=== PATIENT | female | born 1955 | race American Indian/Alaskan Native ===

== ENCOUNTER 2018-07-21 15:13 | Inpatient (IN) | payer BC ==
[2018-07-21 17:32] VITALS: BMI 39.9
[2018-07-21] MEDS: oxyCODONE 10 mg Immediate Release Tab PO PRN (19:28)
--- NOTE | 2018-07-21 19:41 | CP.PCM.HP ---
History of Present Illness - History of Present Illness History of Present Illness: 63 yo female with history of arthritis had left TKR on 07/19/2018 at [facility] after failing conservative management for arthritis of the knee. She was transferred to [facility] and admitted to TCU for rehabilitation. Present on Admission - Present on Admission Any Indicators Present on Admission: No History of DVT/PE: No History of Uncontrolled Diabetes: No Urinary Catheter: No Decubitus Ulcer Present: No Review of Systems - Review of Systems All systems: reviewed and no additional remarkable complaints except (aside from those mentioned above, 12 point system review were negative by me) Past Patient History - Past Medical History & Family History Past Medical History?: Yes - Past Social History Smoking Status: Never Smoked Chewing Tobacco Use: No Cigar Use: No Alcohol: None Drugs: Denies - CARDIAC Hx Cardiac Disorders: No - PULMONARY Hx Respiratory Disorders: No - NEUROLOGICAL Hx Neurological Disorder: Yes Hx Migraine: Yes - HEENT Hx HEENT Problems: Yes Other/Comment: WEARS GLASSES - RENAL Hx Chronic Kidney Disease: No - ENDOCRINE/METABOLIC Hx Endocrine Disorders: Yes Hx Hypothyroidism: Yes - HEMATOLOGICAL/ONCOLOGICAL Hx Blood Disorders: Yes Hx Cancer: Yes (Colon) - INTEGUMENTARY Hx Dermatological Problems: No - MUSCULOSKELETAL/RHEUMATOLOGICAL Hx Musculoskeletal Disorders: Yes (KNEE PAIN) Hx Arthritis: Yes Hx Back Pain: Yes (CERVICAL/LUMBAR) Hx Falls: No Hx Herniated Disk: Yes Hx Spinal Stenosis: Yes - GASTROINTESTINAL Hx Gastrointestinal Disorders: Yes Hx Bowel Surgery: Yes (COLON RESECTION) Hx Ulcer: Yes Other/Comment: COLON CANCER S/P SURGERY - GENITOURINARY/GYNECOLOGICAL Hx Genitourinary Disorders: Yes Hx Postmenopausal Bleeding: Yes - PSYCHIATRIC Hx Psychophysiologic Disorder: No Hx Substance Use: No - SURGICAL HISTORY Hx Surgeries: Yes Hx Appendectomy: Yes Hx Breast Biopsy: Yes (EXC.CYST RT BREAST) Hx Section: Yes (X1) Hx Dilation and Curettage: Yes Hx Joint Replacement: Yes (left total knee 07/19/18) Other/Comment: 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 - ANESTHESIA Hx Anesthesia: Yes Hx Anesthesia Reactions: Yes (NAUSEA) Hx Malignant Hyperthermia: No Meds Allergies/Adverse Reactions: Allergies Allergy/AdvReac Type Severity Reaction Status Date / Time iodine Allergy HEADACHE Verified 07/21/18 17:51 Physical Exam - Constitutional Appears: No Acute Distress - Head Exam Head Exam: ATRAUMATIC - Eye Exam Eye Exam: absent: Scleral icterus - ENT Exam ENT Exam: Mucous Membranes Moist - Neck Exam Neck exam: Negative for: Meningismus - Respiratory Exam Respiratory Exam: absent: Rales, Rhonchi, Wheezes, Respiratory Distress - Cardiovascular Exam Cardiovascular Exam: REGULAR RHYTHM, +S1, +S2 - GI/Abdominal Exam GI & Abdominal Exam: Soft. absent: Tenderness - Rectal Exam Rectal Exam: Deferred - Extremities Exam Extremities exam: Negative for: full ROM (limited ROM on left knee) - Back Exam Back exam: NORMAL INSPECTION - Neurological Exam Neurological exam: Alert, Oriented x3 - Psychiatric Exam Psychiatric exam: Normal Affect - Skin Skin Exam: Dry, Intact Results - Vital Signs Recent Vital Signs: Last Vital Signs Temp 98.9 F 07/21/18 17:32 Pulse 99 H 07/21/18 17:52 Resp 20 07/21/18 17:52 BP 135/83 07/21/18 17:32 Pulse Ox 100 07/21/18 17:32 Assessment & Plan - Assessment and Plan (Free Text) Assessment: 63 yo female with history of arthritis had left TKR on 07/19/2018 at [facility] after failing conservative management for arthritis of the knee. She was transferred to [facility] and admitted to TCU for rehabilitation. 1. Post Left TKR physiatry consult refer to PT/OT for evaluation and management pain control 2. DVT Prophylaxis Lovenox 40mg SC daily
[2018-07-21] MEDS ORDERED: Magnesium Hydroxide Susp 30 ml UD PO PRN (19:49)
[2018-07-22] MEDS: oxyCODONE 10 mg Immediate Release Tab PO PRN ×4 (06:26→20:36)
[2018-07-22] MEDS: Levothyroxine 125 MCG TAB PO SCH (06:27)
[2018-07-22 07:20] LABS: INR 1.2; PROTHROMBIN TIME 13.1 Seconds (9.8-13.1)
[2018-07-22 07:49] LABS: BLOOD UREA NITROGEN 14 mg/dl (7-17); CALCIUM 8.9 mg/dL (8.4-10.2); GFR NON-AFRICAN AMERICAN > 60; HEMOGLOBIN 10.7 g/dL (12.0-16.0); MEAN CELL VOLUME 89.9 fl (81.0-99.0); MEAN CORPUSCULAR HEMOGLOBIN 28.6 pg (27.0-31.0); MEAN CORPUSCULAR HGB CONC 31.8 g/dL (33.0-37.0); RBC 3.76 Mil/uL (3.80-5.20); RED CELL DISTRIBUTION WIDTH 16.2 % (11.5-14.5); WHITE BLOOD COUNT 6.1 K/uL (4.8-10.8)
[2018-07-22] MEDS ORDERED: LEVOTHYROXINE SODIUM 125 MCG PO SCH (09:00)
[2018-07-22] MEDS: Pantoprazole 40 mg EC Tab PO SCH (09:42)
[2018-07-22] MEDS: Enoxaparin 40 mg Syringe SC SCH (10:26)
[2018-07-23] MEDS: oxyCODONE 10 mg Immediate Release Tab PO PRN ×3 (04:20→20:43)
[2018-07-23] MEDS: Levothyroxine 125 MCG TAB PO SCH (06:48)
[2018-07-23] MEDS: Enoxaparin 40 mg Syringe SC SCH (08:32)
[2018-07-23] MEDS: Pantoprazole 40 mg EC Tab PO SCH (08:33)
[2018-07-24] MEDS: Levothyroxine 125 MCG TAB PO SCH (07:39)
[2018-07-24] MEDS: oxyCODONE 10 mg Immediate Release Tab PO PRN ×3 (08:44→20:43)
[2018-07-24] MEDS: Pantoprazole 40 mg EC Tab PO SCH (08:45)
[2018-07-24] MEDS: Enoxaparin 40 mg Syringe SC SCH (08:45)
--- NOTE | 2018-07-24 18:00 | CP.PCM.CON ---
History of Present Illness - History of Present Illness History of Present Illness: Dr Mullins PMR consultation on Marlene Nevarez, born 1955 who has been admitted to [facility] following a left TKR. Post op doing well. Had failed conservative care. Has a history of lumbar pain in the past with surgery. No right knee pain. Review of Systems - Constitutional Constitutional: absent: Chills - EENT Eyes: absent: Change in Vision Ears: absent: Ear Discharge, Ear Pain Nose/Mouth/Throat: absent: Nasal Congestion - Cardiovascular Cardiovascular: absent: Chest Pain - Respiratory Respiratory: absent: Dyspnea, Hemoptysis - Gastrointestinal Gastrointestinal: absent: Constipation - Musculoskeletal Musculoskeletal: Back Pain - Integumentary Integumentary: absent: Bleeding Lesions - Neurological Neurological: absent: Abnormal Movements, Burning Sensations, Disequilibrium, Dizziness, Radicular Pain Past Patient History - Past Medical History & Family History Past Medical History?: Yes - Past Social History Smoking Status: Never Smoked Chewing Tobacco Use: No Cigar Use: No Alcohol: None Drugs: Denies Home Situation {Lives}: With Family (11 outdoor steps and 14 indoor steps) - CARDIAC Hx Cardiac Disorders: No - PULMONARY Hx Respiratory Disorders: No - NEUROLOGICAL Hx Neurological Disorder: Yes Hx Migraine: Yes - HEENT Hx HEENT Problems: Yes Other/Comment: WEARS GLASSES - RENAL Hx Chronic Kidney Disease: No - ENDOCRINE/METABOLIC Hx Endocrine Disorders: Yes Hx Hypothyroidism: Yes - HEMATOLOGICAL/ONCOLOGICAL Hx Blood Disorders: Yes Hx Cancer: Yes (Colon) - INTEGUMENTARY Hx Dermatological Problems: No - MUSCULOSKELETAL/RHEUMATOLOGICAL Hx Musculoskeletal Disorders: Yes (KNEE PAIN) Hx Arthritis: Yes Hx Back Pain: Yes (CERVICAL/LUMBAR) Hx Falls: No Hx Herniated Disk: Yes Hx Spinal Stenosis: Yes - GASTROINTESTINAL Hx Gastrointestinal Disorders: Yes Hx Bowel Surgery: Yes (COLON RESECTION) Hx Ulcer: Yes Other/Comment: COLON CANCER S/P SURGERY - GENITOURINARY/GYNECOLOGICAL Hx Genitourinary Disorders: Yes Hx Postmenopausal Bleeding: Yes - PSYCHIATRIC Hx Psychophysiologic Disorder: No Hx Substance Use: No - SURGICAL HISTORY Hx Surgeries: Yes Hx Appendectomy: Yes Hx Breast Biopsy: Yes (EXC.CYST RT BREAST) Hx Section: Yes (X1) Hx Dilation and Curettage: Yes Hx Joint Replacement: Yes (left total knee 07/19/18) Other/Comment: 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 - ANESTHESIA Hx Anesthesia: Yes Hx Anesthesia Reactions: Yes (NAUSEA) Hx Malignant Hyperthermia: No Meds Allergies/Adverse Reactions: Allergies Allergy/AdvReac Type Severity Reaction Status Date / Time Iodinated Contrast- Oral and Allergy Mild RASH Verified 07/22/18 09:19 IV Dye - Medications Medications: Current Medications Celecoxib (Celebrex) 200 mg PO DAILY [facility] Last Admin: 07/24/18 08:45 Dose: 200 mg Cyclobenzaprine HCl (Flexeril) 10 mg PO BID PRN PRN Reason: Muscle spasm Last Admin: 07/23/18 22:06 Dose: 10 mg Docusate Sodium (Colace) 100 mg PO BID [facility] Last Admin: 07/24/18 17:01 Dose: Not Given Enoxaparin Sodium (Lovenox) 40 mg SC DAILY [facility]; Protocol Last Admin: 07/24/18 08:45 Dose: 40 mg Gabapentin (Neurontin) 300 mg PO Q12 [facility] Last Admin: 07/24/18 08:45 Dose: 300 mg Levothyroxine Sodium (Synthroid) 125 mcg PO ACB@0630 [facility] Last Admin: 07/24/18 07:39 Dose: 125 mcg Magnesium Hydroxide (Milk Of Magnesia) 30 ml PO DAILY PRN PRN Reason: Constipation Oxycodone HCl (Oxycodone Immediate Release Tab) 10 mg PO Q4 PRN PRN Reason: Pain, severe (8-10) Last Admin: 07/24/18 14:21 Dose: 10 mg Pantoprazole Sodium (Protonix Ec Tab) 40 mg PO DAILY [facility] Last Admin: 07/24/18 08:45 Dose: 40 mg Physical Exam - Constitutional Appears: Well, Non-toxic, No Acute Distress - Head Exam Head Exam: ATRAUMATIC, NORMAL INSPECTION, NORMOCEPHALIC - Eye Exam Eye Exam: EOMI - ENT Exam ENT Exam: Mucous Membranes Moist - Respiratory Exam Respiratory Exam: NORMAL BREATHING PATTERN - Cardiovascular Exam Cardiovascular Exam: REGULAR RHYTHM - GI/Abdominal Exam GI & Abdominal Exam: absent: Distended, Firm - Extremities Exam Extremities exam: Negative for: calf tenderness - Neurological Exam Neurological exam: Alert, CN II-XII Intact, Oriented x3 - Psychiatric Exam Psychiatric exam: Normal Affect, Normal Mood - Skin Skin Exam: Warm Results - Vital Signs Recent Vital Signs: Last Vital Signs Temp 97.8 F 07/24/18 16:42 Pulse 96 H 07/24/18 16:42 Resp 20 07/24/18 16:42 BP 118/76 07/24/18 16:42 Pulse Ox 99 07/24/18 16:42 - Labs Result Diagrams: 07/22/18 05:30 07/22/18 05:30 Assessment & Plan - Assessment and Plan (Free Text) Assessment: 63 year old female s/p left TKR POD #6 PT/OT to continue to help increase functional independence Team conference for d/c planning Pain: controlled Vascular: no evidence of DVT GI: No evidence of constipation or diarrhea Patient continues to be an excellent acute rehabilitation candidate and will have continued focused pain management, wound care, PT, OT and recreational therapy to help facilitate a safe and appropriate d/c plan
[2018-07-25] MEDS: oxyCODONE 10 mg Immediate Release Tab PO PRN ×4 (03:54→21:26)
[2018-07-25] MEDS: Levothyroxine 125 MCG TAB PO SCH (06:15)
[2018-07-25] MEDS: Enoxaparin 40 mg Syringe SC SCH (08:19)
[2018-07-25] MEDS: Pantoprazole 40 mg EC Tab PO SCH (08:20)
--- NOTE | 2018-07-25 12:14 | CP.PCM.PN ---
Subjective - Date & Time of Evaluation Date of Evaluation: 07/25/18 Time of Evaluation: 11:00 - Subjective Subjective: Patient seen and examined. Claimed that pain on her operated left knee does not bother her but continued to have pain medication for her pre-existing low back pain. Objective - Vital Signs/Intake and Output Vital Signs (last 24 hours): Temp Pulse Resp BP Pulse Ox 98.3 F 85 20 115/76 100 07/25/18 08:19 07/25/18 08:19 07/25/18 08:19 07/25/18 08:19 07/25/18 08:19 - Medications Medications: Current Medications Celecoxib (Celebrex) 200 mg PO DAILY [facility] Last Admin: 07/25/18 08:19 Dose: 200 mg Cyclobenzaprine HCl (Flexeril) 10 mg PO BID PRN PRN Reason: Muscle spasm Last Admin: 07/25/18 03:54 Dose: 10 mg Docusate Sodium (Colace) 100 mg PO BID [facility] Last Admin: 07/25/18 08:20 Dose: 100 mg Enoxaparin Sodium (Lovenox) 40 mg SC DAILY [facility]; Protocol Last Admin: 07/25/18 08:19 Dose: 40 mg Gabapentin (Neurontin) 300 mg PO Q12 [facility] Last Admin: 07/25/18 08:20 Dose: 300 mg Levothyroxine Sodium (Synthroid) 125 mcg PO ACB@0630 [facility] Last Admin: 07/25/18 06:15 Dose: 125 mcg Magnesium Hydroxide (Milk Of Magnesia) 30 ml PO DAILY PRN PRN Reason: Constipation Oxycodone HCl (Oxycodone Immediate Release Tab) 10 mg PO Q4 PRN PRN Reason: Pain, severe (8-10) Last Admin: 07/25/18 08:18 Dose: 10 mg Pantoprazole Sodium (Protonix Ec Tab) 40 mg PO DAILY [facility] Last Admin: 07/25/18 08:20 Dose: 40 mg - Labs Labs: 07/22/18 05:30 07/22/18 05:30 PT 13.1 Seconds (9.8-13.1) 07/22/18 05:30 INR 1.2 07/22/18 05:30 - Constitutional Appears: No Acute Distress - Head Exam Head Exam: ATRAUMATIC - Eye Exam Eye Exam: absent: Scleral icterus - ENT Exam ENT Exam: Mucous Membranes Moist - Neck Exam Neck Exam: absent: Meningismus - Respiratory Exam Respiratory Exam: absent: Rales, Rhonchi, Wheezes, Respiratory Distress - Cardiovascular Exam Cardiovascular Exam: REGULAR RHYTHM, +S1, +S2 - GI/Abdominal Exam GI & Abdominal Exam: Soft. absent: Tenderness - Rectal Exam Rectal Exam: Deferred - Extremities Exam Extremities Exam: absent: Full ROM (limited ROM on left knee) - Neurological Exam Neurological Exam: Alert, Oriented x3 - Psychiatric Exam Psychiatric exam: Normal Affect - Skin Skin Exam: Dry, Intact Assessment and Plan - Assessment and Plan (Free Text) Assessment: 63 yo female with history of arthritis had left TKR on 07/19/2018 at [facility] after failing conservative management for arthritis of the knee. She was transferred to [facility] and admitted to TCU for rehabilitation. 1. Post Left TKR physiatry consult with Dr Mullins continue PT/OT pain on left knee well controlled 2. Low Back Pain continue Flexeril and Celebrex continue PT 3. DVT Prophylaxis Lovenox 40mg SC daily
--- NOTE | 2018-07-25 17:43 | CP.PCM.PN ---
Subjective - Date & Time of Evaluation Date of Evaluation: 07/25/18 Time of Evaluation: 17:41 - Subjective Subjective: 63 year old female s/p left TKR doing quite well tolerating PT Objective - Vital Signs/Intake and Output Vital Signs (last 24 hours): Temp Pulse Resp BP Pulse Ox 98.7 F 88 20 114/74 100 07/25/18 16:19 07/25/18 16:19 07/25/18 16:19 07/25/18 16:19 07/25/18 16:19 - Medications Medications: Current Medications Celecoxib (Celebrex) 200 mg PO DAILY [facility] Last Admin: 07/25/18 08:19 Dose: 200 mg Cyclobenzaprine HCl (Flexeril) 10 mg PO BID PRN PRN Reason: Muscle spasm Last Admin: 07/25/18 03:54 Dose: 10 mg Docusate Sodium (Colace) 100 mg PO BID [facility] Last Admin: 07/25/18 16:32 Dose: 100 mg Enoxaparin Sodium (Lovenox) 40 mg SC DAILY [facility]; Protocol Last Admin: 07/25/18 08:19 Dose: 40 mg Gabapentin (Neurontin) 300 mg PO Q12 [facility] Last Admin: 07/25/18 08:20 Dose: 300 mg Levothyroxine Sodium (Synthroid) 125 mcg PO ACB@0630 [facility] Last Admin: 07/25/18 06:15 Dose: 125 mcg Magnesium Hydroxide (Milk Of Magnesia) 30 ml PO DAILY PRN PRN Reason: Constipation Oxycodone HCl (Oxycodone Immediate Release Tab) 10 mg PO Q4 PRN PRN Reason: Pain, severe (8-10) Last Admin: 07/25/18 14:21 Dose: 10 mg Pantoprazole Sodium (Protonix Ec Tab) 40 mg PO DAILY [facility] Last Admin: 07/25/18 08:20 Dose: 40 mg - Labs Labs: 07/22/18 05:30 07/22/18 05:30 PT 13.1 Seconds (9.8-13.1) 07/22/18 05:30 INR 1.2 07/22/18 05:30 - Constitutional Appears: Well, Non-toxic, No Acute Distress - Head Exam Head Exam: ATRAUMATIC, NORMAL INSPECTION, NORMOCEPHALIC - Eye Exam Eye Exam: EOMI Pupil Exam: NORMAL ACCOMODATION - ENT Exam ENT Exam: Mucous Membranes Moist - Respiratory Exam Respiratory Exam: NORMAL BREATHING PATTERN - Cardiovascular Exam Cardiovascular Exam: REGULAR RHYTHM - GI/Abdominal Exam GI & Abdominal Exam: absent: Rigid - Neurological Exam Neurological Exam: Alert, Awake, CN II-XII Intact, Oriented x3 - Psychiatric Exam Psychiatric exam: Normal Affect, Normal Mood - Skin Skin Exam: Warm (left knee with incision from TKR and dermabond. ) Assessment and Plan - Assessment and Plan (Free Text) Assessment: s/p left TKR pain is well controlled no constipation or diarrhea no fever or headache no chest pain will d/c CHICHO wrap continue PT/OT
[2018-07-26] MEDS: oxyCODONE 10 mg Immediate Release Tab PO PRN ×4 (05:15→21:36)
[2018-07-26] MEDS: Levothyroxine 125 MCG TAB PO SCH (06:19)
[2018-07-26] MEDS: Enoxaparin 40 mg Syringe SC SCH (08:36)
[2018-07-26] MEDS: Pantoprazole 40 mg EC Tab PO SCH (08:37)
--- NOTE | 2018-07-26 17:13 | CP.PCM.PN ---
Subjective - Date & Time of Evaluation Date of Evaluation: 07/26/18 Time of Evaluation: 17:12 - Subjective Subjective: Patient seen in the room denies sob/cp ambulating 45' with RW had some back pain today continue current care Objective - Vital Signs/Intake and Output Vital Signs (last 24 hours): Temp Pulse Resp BP Pulse Ox 98.5 F 92 H 20 121/74 100 07/26/18 15:52 07/26/18 15:52 07/26/18 15:52 07/26/18 15:52 07/26/18 15:52 - Medications Medications: Current Medications Celecoxib (Celebrex) 200 mg PO DAILY [facility] Last Admin: 07/26/18 08:37 Dose: 200 mg Cyclobenzaprine HCl (Flexeril) 10 mg PO BID PRN PRN Reason: Muscle spasm Last Admin: 07/26/18 16:43 Dose: 10 mg Docusate Sodium (Colace) 100 mg PO BID [facility] Last Admin: 07/26/18 16:42 Dose: 100 mg Enoxaparin Sodium (Lovenox) 40 mg SC DAILY [facility]; Protocol Last Admin: 07/26/18 08:36 Dose: 40 mg Gabapentin (Neurontin) 300 mg PO Q12 [facility] Levothyroxine Sodium (Synthroid) 125 mcg PO ACB@0630 [facility] Last Admin: 07/26/18 06:19 Dose: 125 mcg Magnesium Hydroxide (Milk Of Magnesia) 30 ml PO DAILY PRN PRN Reason: Constipation Oxycodone HCl (Oxycodone Immediate Release Tab) 10 mg PO Q4 PRN PRN Reason: Pain, severe (8-10) Last Admin: 07/26/18 16:42 Dose: 10 mg Pantoprazole Sodium (Protonix Ec Tab) 40 mg PO DAILY [facility] Last Admin: 07/26/18 08:37 Dose: 40 mg - Labs Labs: 07/22/18 05:30 07/22/18 05:30 PT 13.1 Seconds (9.8-13.1) 07/22/18 05:30 INR 1.2 07/22/18 05:30
[2018-07-27] MEDS: oxyCODONE 10 mg Immediate Release Tab PO PRN ×4 (04:23→21:55)
[2018-07-27] MEDS: Levothyroxine 125 MCG TAB PO SCH (06:16)
[2018-07-27] MEDS: Enoxaparin 40 mg Syringe SC SCH (09:06)
[2018-07-27] MEDS: Pantoprazole 40 mg EC Tab PO SCH (09:07)
--- NOTE | 2018-07-27 11:52 | CP.PCM.PN ---
Subjective - Date & Time of Evaluation Date of Evaluation: 07/27/18 Time of Evaluation: 10:15 - Subjective Subjective: Patient seen and examined. Continued to have low back pain radiating to left leg. Objective - Vital Signs/Intake and Output Vital Signs (last 24 hours): Temp Pulse Resp BP Pulse Ox 98.5 F 89 20 122/70 99 07/27/18 08:18 07/27/18 08:18 07/27/18 08:18 07/27/18 08:18 07/27/18 08:18 - Medications Medications: Current Medications Celecoxib (Celebrex) 200 mg PO DAILY [facility] Last Admin: 07/27/18 09:07 Dose: 200 mg Cyclobenzaprine HCl (Flexeril) 10 mg PO BID PRN PRN Reason: Muscle spasm Last Admin: 07/26/18 23:49 Dose: 10 mg Docusate Sodium (Colace) 100 mg PO BID [facility] Last Admin: 07/27/18 09:06 Dose: 100 mg Enoxaparin Sodium (Lovenox) 40 mg SC DAILY [facility]; Protocol Last Admin: 07/27/18 09:06 Dose: 40 mg Gabapentin (Neurontin) 300 mg PO Q12 [facility] Last Admin: 07/27/18 09:07 Dose: 300 mg Levothyroxine Sodium (Synthroid) 125 mcg PO ACB@0630 [facility] Last Admin: 07/27/18 06:16 Dose: 125 mcg Magnesium Hydroxide (Milk Of Magnesia) 30 ml PO DAILY PRN PRN Reason: Constipation Oxycodone HCl (Oxycodone Immediate Release Tab) 10 mg PO Q4 PRN PRN Reason: Pain, severe (8-10) Last Admin: 07/27/18 09:05 Dose: 10 mg Pantoprazole Sodium (Protonix Ec Tab) 40 mg PO DAILY [facility] Last Admin: 07/27/18 09:07 Dose: 40 mg - Labs Labs: 07/22/18 05:30 07/22/18 05:30 PT 13.1 Seconds (9.8-13.1) 07/22/18 05:30 INR 1.2 07/22/18 05:30 - Constitutional Appears: No Acute Distress - Head Exam Head Exam: ATRAUMATIC - Eye Exam Eye Exam: absent: Scleral icterus - ENT Exam ENT Exam: Mucous Membranes Moist - Neck Exam Neck Exam: absent: Meningismus - Respiratory Exam Respiratory Exam: absent: Rales, Rhonchi, Wheezes, Respiratory Distress - Cardiovascular Exam Cardiovascular Exam: REGULAR RHYTHM, +S1, +S2 - GI/Abdominal Exam GI & Abdominal Exam: Soft. absent: Tenderness - Rectal Exam Rectal Exam: Deferred - Extremities Exam Extremities Exam: absent: Full ROM (limited ROM on left hip) - Neurological Exam Neurological Exam: Alert, Oriented x3 - Psychiatric Exam Psychiatric exam: Normal Affect - Skin Skin Exam: Dry, Intact Assessment and Plan - Assessment and Plan (Free Text) Assessment: 63 yo female with history of arthritis had left TKR on 07/19/2018 at [facility] after failing conservative management. She was transferred to [facility] and admitted to TCU for rehabilitation. 1. Post Left TKR physiatry consult with Dr Mullins continue PT/OT pain on left knee well controlled but still need the Oxycodone for her low back pain 2. Low Back Pain continue pain management with Flexeril and Celebrex continue PT 3. DVT Prophylaxis Lovenox 40mg SC daily
[2018-07-28] MEDS: oxyCODONE 10 mg Immediate Release Tab PO PRN ×4 (04:59→22:11)
[2018-07-28] MEDS: Levothyroxine 125 MCG TAB PO SCH (05:53)
[2018-07-28] MEDS: Enoxaparin 40 mg Syringe SC SCH (08:20)
[2018-07-28] MEDS: Pantoprazole 40 mg EC Tab PO SCH (08:21)
--- NOTE | 2018-07-28 18:25 | CP.PCM.PN ---
Subjective - Date & Time of Evaluation Date of Evaluation: 07/28/18 Time of Evaluation: 18:24 - Subjective Subjective: Patient seen in the room doing ok had a flare of LBP and the flexeril did help has a lot of stairs at home and may require a longer BRIAN stay continue current care working hard Objective - Vital Signs/Intake and Output Vital Signs (last 24 hours): Temp Pulse Resp BP Pulse Ox 98.4 F 109 H 20 113/71 98 07/28/18 17:13 07/28/18 17:13 07/28/18 17:13 07/28/18 17:13 07/28/18 17:13 - Medications Medications: Current Medications Celecoxib (Celebrex) 200 mg PO DAILY [facility] Last Admin: 07/28/18 08:21 Dose: 200 mg Cyclobenzaprine HCl (Flexeril) 10 mg PO BID PRN PRN Reason: Muscle spasm Last Admin: 07/28/18 11:50 Dose: 10 mg Docusate Sodium (Colace) 100 mg PO BID [facility] Last Admin: 07/28/18 17:20 Dose: 100 mg Enoxaparin Sodium (Lovenox) 40 mg SC DAILY [facility]; Protocol Last Admin: 07/28/18 08:20 Dose: 40 mg Gabapentin (Neurontin) 300 mg PO Q12 [facility] Last Admin: 07/28/18 08:21 Dose: 300 mg Levothyroxine Sodium (Synthroid) 125 mcg PO ACB@0630 [facility] Last Admin: 07/28/18 05:53 Dose: 125 mcg Magnesium Hydroxide (Milk Of Magnesia) 30 ml PO DAILY PRN PRN Reason: Constipation Oxycodone HCl (Oxycodone Immediate Release Tab) 10 mg PO Q4 PRN PRN Reason: Pain, severe (8-10) Last Admin: 07/28/18 15:07 Dose: 10 mg Pantoprazole Sodium (Protonix Ec Tab) 40 mg PO DAILY [facility] Last Admin: 07/28/18 08:21 Dose: 40 mg - Labs Labs: 07/22/18 05:30 07/22/18 05:30 PT 13.1 Seconds (9.8-13.1) 07/22/18 05:30 INR 1.2 07/22/18 05:30
[2018-07-29] MEDS: oxyCODONE 10 mg Immediate Release Tab PO PRN ×4 (04:56→21:14)
[2018-07-29] MEDS: Levothyroxine 125 MCG TAB PO SCH (05:57)
[2018-07-29] MEDS: Enoxaparin 40 mg Syringe SC SCH (08:33)
[2018-07-29] MEDS: Pantoprazole 40 mg EC Tab PO SCH (08:34)
[2018-07-30] MEDS: oxyCODONE 10 mg Immediate Release Tab PO PRN ×5 (02:57→22:23)
[2018-07-30] MEDS: Levothyroxine 125 MCG TAB PO SCH (06:54)
[2018-07-30] MEDS: Enoxaparin 40 mg Syringe SC SCH (08:40)
[2018-07-30] MEDS: Pantoprazole 40 mg EC Tab PO SCH (08:40)
[2018-07-31] MEDS: oxyCODONE 10 mg Immediate Release Tab PO PRN ×3 (02:36→17:15)
[2018-07-31] MEDS: Levothyroxine 125 MCG TAB PO SCH (05:57)
[2018-07-31] MEDS: Enoxaparin 40 mg Syringe SC SCH (09:35)
[2018-07-31] MEDS: Pantoprazole 40 mg EC Tab PO SCH (09:36)
--- NOTE | 2018-07-31 18:46 | CP.PCM.PN ---
Subjective - Date & Time of Evaluation Date of Evaluation: 07/31/18 Time of Evaluation: 18:45 - Subjective Subjective: Patient seen in the room doing ok but LBP is troublesome we discussed treatment and she agreed to Toradol injection I will hold the Celebrex in the meantime continue PT/OT Objective - Vital Signs/Intake and Output Vital Signs (last 24 hours): Temp Pulse Resp BP Pulse Ox 98.9 F 99 H 20 114/75 98 07/31/18 15:48 07/31/18 15:48 07/31/18 15:48 07/31/18 15:48 07/31/18 15:48 - Medications Medications: Current Medications Cyclobenzaprine HCl (Flexeril) 10 mg PO BID PRN PRN Reason: Muscle spasm Last Admin: 07/31/18 15:03 Dose: 10 mg Docusate Sodium (Colace) 100 mg PO BID [facility] Last Admin: 07/31/18 17:13 Dose: 100 mg Enoxaparin Sodium (Lovenox) 40 mg SC DAILY [facility]; Protocol Last Admin: 07/31/18 09:35 Dose: 40 mg Gabapentin (Neurontin) 300 mg PO Q12 [facility] Last Admin: 07/31/18 09:36 Dose: 300 mg Ketorolac Tromethamine (Toradol) 60 mg IM STAT STA Stop: 07/31/18 18:45 Levothyroxine Sodium (Synthroid) 125 mcg PO ACB@0630 [facility] Last Admin: 07/31/18 05:57 Dose: 125 mcg Magnesium Hydroxide (Milk Of Magnesia) 30 ml PO DAILY PRN PRN Reason: Constipation Oxycodone HCl (Oxycodone Immediate Release Tab) 10 mg PO Q4 PRN PRN Reason: Pain, severe (8-10) Last Admin: 07/31/18 17:15 Dose: 10 mg Pantoprazole Sodium (Protonix Ec Tab) 40 mg PO DAILY [facility] Last Admin: 07/31/18 09:36 Dose: 40 mg - Labs Labs: 07/22/18 05:30 07/22/18 05:30 PT 13.1 Seconds (9.8-13.1) 07/22/18 05:30 INR 1.2 07/22/18 05:30
[2018-08-01] MEDS: Levothyroxine 125 MCG TAB PO SCH (06:18)
[2018-08-01] MEDS: oxyCODONE 10 mg Immediate Release Tab PO PRN ×2 (09:12→14:19)
[2018-08-01] MEDS: Pantoprazole 40 mg EC Tab PO SCH (09:13)
[2018-08-01 16:33] VITALS: RESP 20
--- NOTE | 2018-08-01 16:42 | CP.PCM.PN ---
Subjective - Date & Time of Evaluation Date of Evaluation: 08/01/18 Time of Evaluation: 11:20 - Subjective Subjective: Patient seen and examined. Claimed to feel much better after receiving Toradol 60mg IM yesterday. Objective - Vital Signs/Intake and Output Vital Signs (last 24 hours): Temp Pulse Resp BP Pulse Ox 98.3 F 95 H 20 114/71 100 08/01/18 16:32 08/01/18 16:32 08/01/18 16:32 08/01/18 16:32 08/01/18 16:32 - Medications Medications: Current Medications Cyclobenzaprine HCl (Flexeril) 10 mg PO BID PRN PRN Reason: Muscle spasm Last Admin: 07/31/18 15:03 Dose: 10 mg Docusate Sodium (Colace) 100 mg PO BID [facility] Last Admin: 08/01/18 09:13 Dose: 100 mg Enoxaparin Sodium (Lovenox) 40 mg SC DAILY [facility]; Protocol Gabapentin (Neurontin) 300 mg PO Q12 [facility] Last Admin: 08/01/18 09:13 Dose: 300 mg Levothyroxine Sodium (Synthroid) 125 mcg PO ACB@0630 [facility] Last Admin: 08/01/18 06:18 Dose: 125 mcg Magnesium Hydroxide (Milk Of Magnesia) 30 ml PO DAILY PRN PRN Reason: Constipation Oxycodone HCl (Oxycodone Immediate Release Tab) 10 mg PO Q4 PRN PRN Reason: Pain, severe (8-10) Last Admin: 08/01/18 14:19 Dose: 10 mg Pantoprazole Sodium (Protonix Ec Tab) 40 mg PO DAILY [facility] Last Admin: 08/01/18 09:13 Dose: 40 mg - Labs Labs: 07/22/18 05:30 07/22/18 05:30 PT 13.1 Seconds (9.8-13.1) 07/22/18 05:30 INR 1.2 07/22/18 05:30 - Constitutional Appears: No Acute Distress - Head Exam Head Exam: ATRAUMATIC - Eye Exam Eye Exam: absent: Scleral icterus - ENT Exam ENT Exam: Mucous Membranes Moist - Neck Exam Neck Exam: absent: Meningismus - Respiratory Exam Respiratory Exam: absent: Rales, Rhonchi, Wheezes, Respiratory Distress - Cardiovascular Exam Cardiovascular Exam: REGULAR RHYTHM, +S1, +S2 - GI/Abdominal Exam GI & Abdominal Exam: Soft. absent: Tenderness - Rectal Exam Rectal Exam: Deferred - Neurological Exam Neurological Exam: Alert, Oriented x3 - Psychiatric Exam Psychiatric exam: Normal Affect - Skin Skin Exam: Dry, Intact Assessment and Plan - Assessment and Plan (Free Text) Assessment: 63 yo female with history of arthritis had left TKR on 07/19/2018 at [facility] after failing conservative management. She was transferred to [facility] and admitted to TCU for rehabilitation. 1. Post Left TKR continue PT/OT pain on left knee controlled 2. Low Back Pain received Toradol 60mg IM yesterday causing great improvement from back pain Celebrex on hold continue PT 3. DVT Prophylaxis Lovenox 40mg SC daily
[2018-08-01 17:26] LABS: MEAN CELL VOLUME 87.1 fl (81.0-99.0); MEAN CORPUSCULAR HGB CONC 32.2 g/dL (33.0-37.0); RBC 3.57 Mil/uL (3.80-5.20); RED CELL DISTRIBUTION WIDTH 15.7 % (11.5-14.5); WHITE BLOOD COUNT 6.5 K/uL (4.8-10.8)
[2018-08-01 17:38] LABS: BLOOD UREA NITROGEN 25 mg/dl (7-17); CALCIUM 9.1 mg/dL (8.4-10.2); GFR NON-AFRICAN AMERICAN 56
[2018-08-02] MEDS: oxyCODONE 10 mg Immediate Release Tab PO PRN ×3 (04:48→15:44)
[2018-08-02] MEDS: Levothyroxine 125 MCG TAB PO SCH (06:22)
[2018-08-02] MEDS: Enoxaparin 40 mg Syringe SC SCH (08:21)
[2018-08-02] MEDS: Pantoprazole 40 mg EC Tab PO SCH (08:22)
--- NOTE | 2018-08-02 17:52 | CP.PCM.PN ---
Subjective - Date & Time of Evaluation Date of Evaluation: 08/02/18 Time of Evaluation: 17:51 - Subjective Subjective: Patient seen in the room doing ok got strong relief with the Toradol injection a few days ago and it is wearing off now she is going home tomorrow and wanted another one Objective - Vital Signs/Intake and Output Vital Signs (last 24 hours): Temp Pulse Resp BP Pulse Ox 98.5 F 98 H 20 134/86 100 08/02/18 16:36 08/02/18 16:36 08/02/18 16:36 08/02/18 16:36 08/02/18 16:36 - Medications Medications: Current Medications Cyclobenzaprine HCl (Flexeril) 10 mg PO BID PRN PRN Reason: Muscle spasm Last Admin: 08/02/18 08:22 Dose: 10 mg Docusate Sodium (Colace) 100 mg PO BID [facility] Last Admin: 08/02/18 16:16 Dose: 100 mg Enoxaparin Sodium (Lovenox) 40 mg SC DAILY [facility]; Protocol Last Admin: 08/02/18 08:21 Dose: 40 mg Gabapentin (Neurontin) 300 mg PO Q12 [facility] Last Admin: 08/02/18 08:21 Dose: 300 mg Levothyroxine Sodium (Synthroid) 125 mcg PO ACB@0630 [facility] Last Admin: 08/02/18 06:22 Dose: 125 mcg Magnesium Hydroxide (Milk Of Magnesia) 30 ml PO DAILY PRN PRN Reason: Constipation Oxycodone HCl (Oxycodone Immediate Release Tab) 10 mg PO Q4 PRN PRN Reason: Pain, severe (8-10) Last Admin: 08/02/18 15:44 Dose: 10 mg Pantoprazole Sodium (Protonix Ec Tab) 40 mg PO DAILY [facility] Last Admin: 08/02/18 08:22 Dose: 40 mg - Labs Labs: 08/01/18 17:10 08/01/18 17:10 PT 13.1 Seconds (9.8-13.1) 07/22/18 05:30 INR 1.2 07/22/18 05:30
[2018-08-03] MEDS: Levothyroxine 125 MCG TAB PO SCH (06:15)
[2018-08-03] MEDS: oxyCODONE 10 mg Immediate Release Tab PO PRN (08:00)
[2018-08-03 08:22] VITALS: BP 119/73; PULSE 89; TEMP 97.7; O2SAT 100
[2018-08-03] MEDS: Enoxaparin 40 mg Syringe SC SCH (08:36)
[2018-08-03] MEDS: Pantoprazole 40 mg EC Tab PO SCH (08:37)
[2018-08-03] MEDS ORDERED: Pneumococcal 23-Valent Vaccine IM ONE (09:00)
--- NOTE | 2018-08-03 10:06 | CP.PCM.DIS ---
Provider - Provider Date of Admission: 07/21/18 18:08 Attending physician: Tian Montero MD Primary care physician: Hue García MD Consults: 07/21/18 18:07 Case Management Referral Routine Comment: Physician Instructions: Reason For Exam: Reason for Referral: Discharge Planning Pastoral Care Referral Routine Comment: Physician Instructions: Reason For Exam: advance directive 07/21/18 18:46 Physiatry Consult Routine Comment: Consulting Provider: Dago Mullins Consulting Physician: Dago Mullins Reason for Consult: status post total knee replacement Time Spent in preparation of Discharge (in minutes): 25 Diagnosis - Discharge Diagnosis (1) Status post total knee replacement, left Status: Acute Comment: continue outpatient PT for another 4 weeks Hospital Course - Lab Results Lab Results: Most Recent Lab Values WBC 6.5 K/uL (4.8-10.8) 08/01/18 17:10 RBC 3.57 Mil/uL (3.80-5.20) L 08/01/18 17:10 Hgb 10.0 g/dL (12.0-16.0) L 08/01/18 17:10 Hct 31.0 % (34.0-47.0) L 08/01/18 17:10 MCV 87.1 fl (81.0-99.0) D 08/01/18 17:10 MCH 28.0 pg (27.0-31.0) 08/01/18 17:10 MCHC 32.2 g/dL (33.0-37.0) L 08/01/18 17:10 RDW 15.7 % (11.5-14.5) H 08/01/18 17:10 Plt Count 571 K/uL (130-400) H D 08/01/18 17:10 PT 13.1 Seconds (9.8-13.1) 07/22/18 05:30 INR 1.2 07/22/18 05:30 Sodium 138 mmol/l (132-148) 08/01/18 17:10 Potassium 4.8 MMOL/L (3.6-5.0) 08/01/18 17:10 Chloride 104 mmol/L (98-107) 08/01/18 17:10 Carbon Dioxide 29 mmol/L (22-30) 08/01/18 17:10 Anion Gap 10 (10-20) 08/01/18 17:10 BUN 25 mg/dl (7-17) H 08/01/18 17:10 Creatinine 1.0 mg/dl (0.7-1.2) 08/01/18 17:10 Est GFR ( Amer) > 60 08/01/18 17:10 Est GFR (Non-Af Amer) 56 08/01/18 17:10 Random Glucose 109 mg/dL (65-105) H 08/01/18 17:10 Calcium 9.1 mg/dL (8.4-10.2) 08/01/18 17:10 - Hospital Course Hospital Course: 63 yo female with history of arthritis had left TKR on 07/19/2018 at [facility] after failing conservative management for arthritis of the left knee. She was transferred to [facility] and admitted to TCU for continuation of PT. Patient did well and now is ready for discharge. Discharge Exam - Head Exam Head Exam: ATRAUMATIC - Eye Exam Eye Exam: absent: Scleral icterus - ENT Exam ENT Exam: Mucous Membranes Moist - Respiratory Exam Respiratory Exam: absent: Rales, Rhonchi, Wheezes, Respiratory Distress - Cardiovascular Exam Cardiovascular Exam: REGULAR RHYTHM, +S1, +S2 - GI/Abdominal Exam GI & Abdominal Exam: Soft. absent: Tenderness - Rectal Exam Rectal Exam: Deferred - Back Exam Back exam: NORMAL INSPECTION - Neurological Exam Neurological exam: Alert, Oriented x3 - Psychiatric Exam Psychiatric exam: Normal Affect - Skin Skin Exam: Dry, Intact Discharge Plan - Discharge Medications Prescriptions: Gabapentin 300 mg PO BID #60 capsule - Follow Up Plan Condition: GOOD Disposition: HOME/ ROUTINE Instructions: Total Knee Replacement (DC), Preventing Falls, Postop Total Knee Replacement Exercises Lying Down, Postop Total Knee Replacement Exercises Seated or Standing Additional Instructions: APPOINTMENT MADE WITH DR. WILSON AT [place] FOR JULY 24, 2018 AT 2 PM . Referrals: Hue García MD [Primary Care Provider] - Dago Mullins MD [Staff Provider] -
== END 2018-08-03 12:06 | disposition home or self-care (01) | DRG 561 ==
LOC: H.TCU 18:08
PROC: F07Z8FZ Transfer Training Treatment using Assistive, Adaptive, Supportive or Protective Equipment (ICD-10-PCS; 2018-07-21)
PROC: F07Z9FZ Gait Training/Functional Ambulation Treatment using Assistive, Adaptive, Supportive or Protective Equipment (ICD-10-PCS; 2018-07-21)
PROC: F08Z1FZ Dressing Techniques Treatment using Assistive, Adaptive, Supportive or Protective Equipment (ICD-10-PCS; 2018-07-21)
PROC: F08Z4FZ Home Management Treatment using Assistive, Adaptive, Supportive or Protective Equipment (ICD-10-PCS; 2018-07-21)
PROC: F07L6GZ Therapeutic Exercise Treatment of Musculoskeletal System - Lower Back / Lower Extremity using Aerobic Endurance and Conditioning Equipment (ICD-10-PCS; 2018-07-21)
PROC: F07L7ZZ Manual Therapy Techniques Treatment of Musculoskeletal System - Lower Back / Lower Extremity (ICD-10-PCS; 2018-07-21)
PROC: 3E0234Z Introduction of Serum, Toxoid and Vaccine into Muscle, Percutaneous Approach (ICD-10-PCS; principal; 2018-08-03)
DX: Z47.1 Aftercare following joint replacement surgery (principal); Z96.652 Presence of left artificial knee joint; E03.9 Hypothyroidism, unspecified; Z85.038 Personal history of other malignant neoplasm of large intestine; M54.5 Low back pain; Z91.041 Radiographic dye allergy status; Z23 Encounter for immunization